=== PATIENT | male | born 1935 | race Caucasian/White ===

== ENCOUNTER 2016-09-16 05:41 | Day surgery (SDC) | payer OTHER ==
[~2016-09-16] VITALS: Ht 162.6 cm; Wt 74.8 kg
--- NOTE | ~2016-09-16 | O ---
[facility] [place] [address] OPERATIVE REPORT Name: JCARLOS URIAS Room #: DEP [facility] [place] M.R.#: [id number] Admission: 09/16/16 Attend Phys: Mitchel Menon MD Discharge: 09/16/16 Date of : 31 Report #: [id number] THIS REPORT FOR: //name// CC: Jozef Menon DATE OF SERVICE: 09/16/2016 RESERVATION SALES AGENT: None. 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 OPERATION PERFORMED: Bilateral upper lid functional ptosis repair. RESERVATION SALES AGENT: None. ANESTHESIA: Local with IV sedation. COMPLICATIONS: None. 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 Visual field testing demonstrates an improvement in the superior visual field loss with elevation of the eyelid margin into a normal anatomic location. The current procedure is being undertaken in order to improve the patient's visual function. Informed consent was obtained to include but not limited to the risk of loss of vision, bleeding, infection, scarring, failure to improve the problem and need for further surgery, such as adjustment of lid height. DESCRIPTION OF PROCEDURE: The patient was taken to the operating room, where 2% Xylocaine with epinephrine mixed with equal parts of 0.75% Marcaine with Wydase was administered transcutaneously to the each upper lid. The patient was then prepped and draped in the usual sterile fashion. An upper lid crease incision was then made bilaterally and the dissection was [facility] [address] [place] [address] OPERATIVE REPORT Name: JCARLOS URIAS Room #: DEP [facility] [place] [facility] M.R.#: [id number] Admission: 09/16/16 Attend Phys: Mitchel Menon MD Discharge: 09/16/16 Date of : 31 Report #: [id number] carried down until the orbital septum was identified. The orbital septum was then cleared and the preaponeurotic fat identified. The levator aponeurosis was then disinserted from the anterior surface of the tarsal plate and dissected free in the avascular Adair's muscle plane. The aponeurosis was then advanced and reattached to the anterior surface of the tarsal plate with interrupted mattress 6-0 Novafil sutures on each side, adjusting for height and contour. The redundant aponeurosis was then amputated. The incision was then closed with multiple interrupted 6-0 Chromic sutures that were used to recreate an upper lid crease. The skin was closed with a running 6-0 plain gut suture. The wound was then cleaned and dressed with ophthalmic antibiotic ointment followed by a Telfa pad. The patient was transported to the recovery area, having tolerated the procedure well with no anesthesia or operative complications being noted. By: [id number] Mitchel Menon MD /adam
[~2016-09-16 05:41] MED LIST: AMLODIPINE-ATO1 EAC6 PO; ASPIR 8181 M1 PO; LOPRESSOR50 PO; LUTEIN 15 MG S1 EACH PO; MULTIVITAMINS1 EAC7 PO; OMEPRAZOLE 20 M20 M1 PO; OSTEO BI-FLEX1 EAC1 PO; RAMIPRIL5 MG PO; TIMOLOL MA0.25 %/5 M OPHTHALMIC; TRAVATAN Z5 ML OPHTHALMIC; ZETIA10 MG PO
== END 2016-09-16 15:15 | disposition home or self-care (01) ==
LOC: OR 05:41 → TBA 05:42 → OR 13:52
DX: H02.403 Unspecified ptosis of bilateral eyelids (principal); H53.462 Homonymous bilateral field defects, left side; H53.461 Homonymous bilateral field defects, right side; I10 Essential (primary) hypertension; E78.00 Pure hypercholesterolemia, unspecified; Z95.1 Presence of aortocoronary bypass graft; K21.9 Gastro-esophageal reflux disease without esophagitis; Z98.890 Other specified postprocedural states
CPT/HCPCS: 50010; 50101; 50386; 50398; 51606; 51636; 56528; 56531; 62110; 62850; 70005